=== PATIENT | female | born 1940 | race Caucasian/White ===

== ENCOUNTER 2017-11-24 07:53 | Day surgery (SDC) | payer OTHER ==
[~2017-11-24] VITALS: Ht 166.4 cm; Wt 93.0 kg
[~2017-11-24 07:53] MED LIST: AMLODIPINE BESYL5 MG PO; BIOTIN2500 MCG PO; CELEXA20 MG PO; DOXAZOSIN MESYLA4 MG PO; FENOFIBRATE160 M1 PO; GABAPENTIN300 MG PO; GLYBURIDE5 MG PO; HUMULIN N100 UNITS/ SC; LEVOTHYROXINE88 MCG PO; LISINOPRIL20 MG PO; NOVOLIN,HU100 UNITS1 SC; REFRESH TEARS15 ML LEFT EYE
== END 2017-11-24 14:39 | disposition home or self-care (01) ==
LOC: CATH 07:53
PROVIDERS: Internal Medicine Interventional Cardiology
DX: I25.118 Atherosclerotic heart disease of native coronary artery with other forms of angina pectoris (principal); I34.0 Nonrheumatic mitral (valve) insufficiency; I10 Essential (primary) hypertension; E11.9 Type 2 diabetes mellitus without complications; E78.5 Hyperlipidemia, unspecified; E03.9 Hypothyroidism, unspecified; I44.7 Left bundle-branch block, unspecified; E66.9 Obesity, unspecified; Z68.33 Body mass index [BMI] 33.0-33.9, adult; Z82.49 Family history of ischemic heart disease and other diseases of the circulatory system
CPT/HCPCS: 82948; 85347; 93005; C1769; C1887; J1200; J1644; J2250; J2765; J2930; J3010; J7040